=== PATIENT | female | born 1955 | race Caucasian/White ===

== ENCOUNTER 2016-09-24 23:26 | Emergency (ER) | payer SELFPAY ==
[2016-09-25] MEDS ORDERED: Cephalexin CAP* 500 MG PO ONE ×2 (01:18)
[2016-09-25] MEDS ORDERED: Tetan/Diph/Pertus SYR(Tdap)* 0.5 ML SYR(BOOSTRIX) use SYR IM ONE (01:22)
--- NOTE | 2016-09-25 01:22 | ED ---
Skin Complaint - HPI Summary HPI Summary: Pt here w/ facial injury s/p fall while intoxicated. Has bleeding, swelling, bruising of her Lt supraorbital ridge. Abrasions to cheek and nose. Tripped in gravel [place]. Wound is dirty. She is unsure of tetanus vaccine (quite sure it's not within 5 years). Male partner is with her and denies LOC. She denies SMITH, visual change, ocular pain at rest or with movement, neck pain, dental pain, nose bleed/nasal pain or trouble breathing through nose. No anticoagulants. Only medical hx is hypothyroidism for which she takes medication. 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 Pain Intensity: 6 - Allergy/Home Medications Allergies/Adverse Reactions: Allergies Allergy/AdvReac Type Severity Reaction Status Date / Time No Known Allergies Allergy Verified 09/24/16 23:29 PMH/Surg Hx/FS Hx/Imm Hx Previously Healthy: Yes Endocrine/Hematology History: Reports: Hx Thyroid Disease Denies: Hx Anticoagulant Therapy, Hx Blood Disorders Infectious Disease History: No Infectious Disease History: Reports: Traveled Outside the [place] in Last 30 Days - [place] - Social History Occupation: Employed Full-time Lives: With Family Alcohol Use: Occasionally Substance Use Type: Reports: None Hx Tobacco Use: Yes Smoking Status (MU): Current Every Day Smoker Review of Systems Constitutional: Negative Negative: Fatigue Eyes: Negative Negative: Photophobia, Blurred Vision, Diplopia ENT: Negative Negative: Dental Pain, Sore Throat, Ear Ache Cardiovascular: Negative Negative: Chest Pain Respiratory: Negative Negative: Shortness Of Breath Gastrointestinal: Negative Negative: Vomiting, Nausea Positive: no symptoms reported Musculoskeletal: Negative Skin: Other - see HPI Neurological: Negative Psychological: Normal All Other Systems Reviewed And Are Negative: Yes Physical Exam Triage Information Reviewed: Yes Vital Signs On Initial Exam: Initial Vitals Temp Pulse Resp BP Pulse Ox 97.8 F 79 18 134/88 100 09/24/16 23:29 09/24/16 23:29 09/24/16 23:29 09/24/16 23:29 09/24/16 23:29 Vital Signs Reviewed: Yes Appearance: Positive: Well-Appearing, No Pain Distress, Well-Nourished Skin: Positive: Warm - dried blood w/ abrasion and laceration over face - largest lac is over Lt supraorbital ridge - smaller lacs over medial Lt brow and bridge of nose; superficial abrasion over Lt cheek Head/Face: Positive: Normal Head/Face Inspection - NTTP, no gross defomity other than hematoma forming about Lt supraorbital ridge - no laxity of bony anatomy here Eyes: Positive: Normal, EOMI - no pain w/ ocular movement, LANA - no photophobia , Conjunctiva Clear ENT: Positive: Normal ENT inspection, Hearing grossly normal, TMs normal - no hemotympanum. Negative: Nasal drainage, Trismus Dental: Negative: Dental Fracture @ Respiratory/Lung Sounds: Positive: Breath Sounds Present Cardiovascular: Positive: Normal Abdomen Description: Positive: Nontender, Soft Musculoskeletal: Positive: Normal, Strength/ROM Intact Neurological: Positive: Normal, Sensory/Motor Intact, Alert, Oriented to Person Place, Time, CN Intact II-III Psychiatric: Positive: Normal - [place] Coma Scale Coma Scale Total: 15 Procedures - Laceration/Wound Repair 1 Location: face - Lt supraorbital ridge Description: Irregular Anesthesia: Local, Marcaine, Epi Length, Depth and Shape: 2.5cm x 1cm deep Betadine Prep?: No - hibaclens solution Irrigated w/ Saline (ccs): 250 Laceration/Wound Explored: contaminated - dirt along edges - irrigated, brushed and manually debrided with forceps Closure: Single Layer Debridement: moderate Suture Type: Prolene - 6-0 Number of Sutures: 5 Layer Closure?: No Sterile Dressing Applied?: Yes - triple anbx ointment Diagnostics - Vital Signs Vital Signs Temp Pulse Resp BP Pulse Ox 09/24/16 23:30 97.8 F 79 18 134/88 100 09/24/16 23:29 97.8 F 79 18 134/88 100 - Laboratory Lab Statement: Any lab studies that have been ordered have been reviewed, and results considered in the medical decision making process. Course/Dx - Course Course Of Treatment: Pt here w/ fall while intoxicated. This was witnessed and no LOC reported. Pt states she feels fine at this time. Wound with vigorous and thorough cleansing although still some lingering debris unable to remove despite cleaning efforts. It was discussed this should be closed as it's a facial laceration and so anbx were also started. Pt does not meet criteria for head CT but reviewed danger s/sx of when to return to ED. Advised close follow- up for wound recheck and monitor for s/sx of infection. Complete anbx as directed. - Diagnoses Provider Diagnoses: Fall from standing, Face lacerations, Facial abrasion, Traumatic hematoma of face Discharge - Discharge Plan Condition: Stable Disposition: HOME Prescriptions: Cephalexin CAP* [Keflex 500 CAP*] 500 mg PO QID #38 cap Patient Education Materials: Facial Laceration (ED), Care For Your Stitches (ED ), Diphtheria/Acellular Pertussis/Tetanus Vaccine (By injection), Cephalexin ( By mouth) Referrals: No Primary Care Phys,NOPCP [Primary Care Provider] - Additional Instructions: Gently wash area with soap and water daily - rinse well and pat dry with clean cloth then reapply triple antibiotic ointment. You may apply ice to area of swelling and bruising You may take ibuprofen with food for pain and swelling alternating with acetaminophen Complete antibiotics as necessary Follow-up with PCP in 5 days for wound check and suture removal *If you develop redness, swelling, purulent drainage, fever, chills, seek medical attention sooner
[2016-09-25 01:41] VITALS: BP 114/70
== END 2016-09-25 01:40 | disposition home or self-care (01) ==
LOC: ED 23:26
DX: S01.81XA Laceration without foreign body of other part of head, initial encounter (principal); S00.83XA Contusion of other part of head, initial encounter; W19.XXXA Unspecified fall, initial encounter; Y93.9 Activity, unspecified; Y92.89 Other specified places as the place of occurrence of the external cause
CPT/HCPCS: 90471; 90715; 99282; A9270-GY